=== PATIENT | female | born 1950 | race Caucasian/White ===

== ENCOUNTER 2022-02-18 10:07 | Inpatient (IN) | payer MEDICARE, OTHER ==
[2022-02-18] MEDS: ALBUTEROL SO4 2.5/IPRATROPIUM 0.5 INH SOL 3 ML VIAL.NEB. NEB SCH ×2 (11:00→11:01)
[2022-02-18] MEDS ORDERED: ALBUTEROL SO4 2.5/IPRATROPIUM 0.5 INH SOL 3 ML VIAL.NEB. NEB ONE (11:03)
[2022-02-18 11:47] LABS: HEMATOCRIT 36.8 % (32.4-45.2); HEMOGLOBIN 12.3 GM/dL (10.7-15.3); MCHC 33.5 g/dl (32.0-36.0); MEAN CELL VOLUME 92.7 fl (80-96); MEAN PLT VOLUME 9.6 fl (7.5-11.1); PLATELET COUNT 111 10^3/uL (134-434); RBC 3.97 M/mm3 (3.60-5.2); RDW 14.4 % (11.6-15.6); WHITE BLOOD COUNT 4.8 K/mm3 (4.0-10.0)
[2022-02-18 11:55] LABS: INR 1.37 (0.83-1.09); PROTHROMBIN TIME (PATIENT) 15.8 SEC (9.7-13.0)
[2022-02-18 11:58] LABS: ACTIVATED PTT 36.5 SECONDS (25.2-36.5)
[2022-02-18 12:14] LABS: CALCIUM 8.3 mg/dL (8.5-10.1)
[2022-02-18 12:15] LABS: ALBUMIN 2.9 g/dl (3.4-5.0); BLOOD UREA NITROGEN 10.5 mg/dL (7-18)
[2022-02-18 12:18] LABS: CREATININE 0.8 mg/dL (0.55-1.3)
[2022-02-18 12:19] LABS: BILIRUBIN,TOTAL 1.1 mg/dL (0.2-1)
[2022-02-18 12:20] LABS: TOT PROT 8.2 g/dl (6.4-8.2)
[2022-02-18 12:23] LABS: N-TERMINAL BNP 446.1 pg/ml (5-125)
[2022-02-18 12:50] LABS: ANISOCYTOSIS 0; MACROCYTOSIS 0
[2022-02-18] MEDS ORDERED: ASPIRIN 81 MG CHEWABLE TABLETS PO ONE (16:08)
[2022-02-18] MEDS: DEXAMETHASONE SOD PHOSPHATE 10 MG/1 ML VIAL IVPUSH SCH (16:33)
[2022-02-18] MEDS ORDERED: ASPIRIN 81 MG CHEWABLE TABLETS ONE (16:45)
[2022-02-18] MEDS ORDERED: DEXAMETHASONE SOD PHOSPHATE 10 MG/1 ML VIAL ONE (16:45)
[2022-02-18 16:46] LABS: PHOSPHOROUS 3.1 mg/dL (2.5-4.9)
[2022-02-18] MEDS ORDERED: ACETAMINOPHEN INJECTION 100 ML IVPB ONE (16:56)
[2022-02-18] MEDS ORDERED: ACETAMINOPHEN 1000 MG/100 ML BAG IVPB ONE (17:07)
[2022-02-18] MEDS ORDERED: ENOXAPARIN NA (PORCINE) 80 MG/0.8 ML DISP.SYRIN SQ ONE ×2 (17:45→18:44)
[2022-02-18 17:55] LABS: PH,URINE 6.5 (5.0-8.0); URINE APPEARANCE CLEAR; URINE BILIRUBIN NEGATIVE (NEGATIVE); URINE COLOR YELLOW; URINE GLUCOSE (UA) NEGATIVE (NEGATIVE); URINE KETONE NEGATIVE (NEGATIVE); URINE LEUK ESTERASE NEGATIVE (NEGATIVE); URINE NITRITE NEGATIVE (NEGATIVE); URINE PROTEIN NEGATIVE (NEGATIVE)
[2022-02-18] MEDS ORDERED: ATORVASTATIN CA 20 MG TABLET (FP) PO SCH (22:00)
[2022-02-18] MEDS ORDERED: ATORVASTATIN CA 80 MG TABLET (FP) PO SCH (22:00)
[2022-02-18] MEDS ORDERED: ATORVASTATIN CA 80 MG TABLET (FP) ONE (22:22)
[2022-02-18] MEDS ORDERED: MONTELUKAST NA 10 MG TABLET ONE (22:24)
[2022-02-18] MEDS: AMITRIPTYLINE HCL 75 MG TABLET PO SCH (22:47)
[2022-02-18] MEDS: MONTELUKAST NA 10 MG TABLET PO SCH (22:47)
[2022-02-19 00:58] VITALS: BMI 30.2
[2022-02-19] MEDS: LEVOTHYROXINE NA 150 MCG TABLET PO SCH (06:25)
[2022-02-19 08:51] LABS: HEMATOCRIT 36.2 % (32.4-45.2); HEMOGLOBIN 12.1 GM/dL (10.7-15.3); MCH 30.7 pg (25.7-33.7); MCHC 33.5 g/dl (32.0-36.0); MEAN CELL VOLUME 91.7 fl (80-96); MEAN PLT VOLUME 9.2 fl (7.5-11.1); PLATELET COUNT 115 10^3/uL (134-434); RBC 3.95 M/mm3 (3.60-5.2); RDW 15.1 % (11.6-15.6); WHITE BLOOD COUNT 11.3 K/mm3 (4.0-10.0)
[2022-02-19 09:10] LABS: CALCIUM 8.4 mg/dL (8.5-10.1)
[2022-02-19 09:11] LABS: ALBUMIN 2.8 g/dl (3.4-5.0); BLOOD UREA NITROGEN 11.3 mg/dL (7-18); MAGNESIUM 2.2 mg/dL (1.8-2.4)
[2022-02-19 09:13] LABS: CREATININE 0.7 mg/dL (0.55-1.3); PHOSPHOROUS 2.6 mg/dL (2.5-4.9)
[2022-02-19 09:16] LABS: BILIRUBIN,TOTAL 0.9 mg/dL (0.2-1); TOT PROT 7.9 g/dl (6.4-8.2)
[2022-02-19] MEDS: ACETAMINOPHEN 325 MG TABLET (FP) PO PRN (09:33)
[2022-02-19] MEDS: PANTOPRAZOLE 40 MG TABLET PO SCH (09:33)
[2022-02-19] MEDS: ASPIRIN COATED 81 MG TABLET.EC PO SCH (09:33)
[2022-02-19] MEDS: DEXAMETHASONE SOD PHOSPHATE 10 MG/1 ML VIAL IVPUSH SCH (09:33)
[2022-02-19 09:35] LABS: ERYTHROCYTE SEDIMENTATION RATE 83 mm/hr (0-30)
[2022-02-19] MEDS ORDERED: ENOXAPARIN NA (PORCINE) 40 MG/0.4 ML DISP.SYRIN SQ SCH (10:00)
[2022-02-19] MEDS ORDERED: POTASSIUM CHLORIDE ORAL LIQUID 20 MEQ/15 ML PO ONE (10:55)
[2022-02-19] MEDS: MONTELUKAST NA 10 MG TABLET PO SCH (21:21)
[2022-02-19] MEDS: AMITRIPTYLINE HCL 75 MG TABLET PO SCH (21:34)
[2022-02-20] MEDS: LEVOTHYROXINE NA 150 MCG TABLET PO SCH (06:18)
[2022-02-20 07:58] LABS: BASO % 0.2 % (0-2.0); HEMOGLOBIN 12.4 GM/dL (10.7-15.3); LYMPH % 11.3 % (8-40); MCH 30.5 pg (25.7-33.7); MCHC 32.8 g/dl (32.0-36.0); MEAN CELL VOLUME 93.1 fl (80-96); MEAN PLT VOLUME 9.5 fl (7.5-11.1); MONO % 5.4 % (3.8-10.2); NEUT % 83.1 % (42.8-82.8); PLATELET COUNT 130 10^3/uL (134-434); RBC 4.08 M/mm3 (3.60-5.2); WHITE BLOOD COUNT 12.3 K/mm3 (4.0-10.0)
[2022-02-20 08:19] LABS: CALCIUM 8.2 mg/dL (8.5-10.1)
[2022-02-20 08:21] LABS: ALBUMIN 2.7 g/dl (3.4-5.0); BLOOD UREA NITROGEN 16.2 mg/dL (7-18); MAGNESIUM 2.2 mg/dL (1.8-2.4)
[2022-02-20 08:24] LABS: CREATININE 0.6 mg/dL (0.55-1.3)
[2022-02-20 08:26] LABS: BILIRUBIN,TOTAL 0.9 mg/dL (0.2-1); TOT PROT 7.9 g/dl (6.4-8.2)
[2022-02-20] MEDS: ASPIRIN COATED 81 MG TABLET.EC PO SCH (11:03)
[2022-02-20] MEDS: ENOXAPARIN NA (PORCINE) 40 MG/0.4 ML DISP.SYRIN SQ SCH (11:03)
[2022-02-20] MEDS: DEXAMETHASONE SOD PHOSPHATE 10 MG/1 ML VIAL IVPUSH SCH (11:03)
[2022-02-20] MEDS: PANTOPRAZOLE 40 MG TABLET PO SCH (11:04)
[2022-02-20] MEDS: metoPROLOL SUCCINATE 25 MG TAB.SR.24H (FP) PO SCH (11:04)
[2022-02-20] MEDS ORDERED: AZITHROMYCIN IVPB 500 MG/250 ML BAG IVPB SCH (13:30)
[2022-02-20] MEDS: CEFTRIAXONE 1 GM in DEXTROSE 5%-WATER - 50 ML IVPB SCH (14:11)
[2022-02-20] MEDS: ALBUTEROL SO4 2.5/IPRATROPIUM 0.5 INH SOL 3 ML VIAL.NEB. NEB SCH ×2 (14:50→21:03)
[2022-02-20 17:07] LABS: PH,URINE 7.5 (5.0-8.0); URINE APPEARANCE CLEAR; URINE BILIRUBIN NEGATIVE (NEGATIVE); URINE COLOR YELLOW; URINE GLUCOSE (UA) NEGATIVE (NEGATIVE); URINE KETONE NEGATIVE (NEGATIVE); URINE LEUK ESTERASE NEGATIVE (NEGATIVE); URINE NITRITE NEGATIVE (NEGATIVE); URINE PROTEIN NEGATIVE (NEGATIVE)
[2022-02-20] MEDS: ACETAMINOPHEN 325 MG TABLET (FP) PO PRN (19:16)
[2022-02-20] MEDS: MONTELUKAST NA 10 MG TABLET PO SCH (21:02)
[2022-02-20] MEDS: AMITRIPTYLINE HCL 75 MG TABLET PO SCH (21:02)
[2022-02-21] MEDS: LEVOTHYROXINE NA 150 MCG TABLET PO SCH (06:33)
[2022-02-21] MEDS: ALBUTEROL SO4 2.5/IPRATROPIUM 0.5 INH SOL 3 ML VIAL.NEB. NEB SCH ×3 (07:35→19:35)
[2022-02-21 08:23] LABS: BASO % 0.2 % (0-2.0); HEMOGLOBIN 12.5 GM/dL (10.7-15.3); MCH 30.9 pg (25.7-33.7); MCHC 32.8 g/dl (32.0-36.0); MEAN PLT VOLUME 9.5 fl (7.5-11.1); MONO % 6.4 % (3.8-10.2); NEUT % 78.4 % (42.8-82.8); PLATELET COUNT 140 10^3/uL (134-434); RBC 4.04 M/mm3 (3.60-5.2); WHITE BLOOD COUNT 8.9 K/mm3 (4.0-10.0)
[2022-02-21 08:54] LABS: ALBUMIN 2.6 g/dl (3.4-5.0); BLOOD UREA NITROGEN 19.1 mg/dL (7-18); CALCIUM 8.3 mg/dL (8.5-10.1); CREATININE 0.7 mg/dL (0.55-1.3); MAGNESIUM 2.3 mg/dL (1.8-2.4); PHOSPHOROUS 3.6 mg/dL (2.5-4.9)
[2022-02-21 08:55] LABS: BILIRUBIN,TOTAL 0.8 mg/dL (0.2-1)
[2022-02-21 08:56] LABS: TOT PROT 7.9 g/dl (6.4-8.2)
[2022-02-21] MEDS: CEFTRIAXONE 1 GM in DEXTROSE 5%-WATER - 50 ML IVPB SCH (09:14)
[2022-02-21] MEDS: PANTOPRAZOLE 40 MG TABLET PO SCH (09:14)
[2022-02-21] MEDS: metoPROLOL SUCCINATE 25 MG TAB.SR.24H (FP) PO SCH (09:15)
[2022-02-21] MEDS: DEXAMETHASONE SOD PHOSPHATE 10 MG/1 ML VIAL IVPUSH SCH (09:15)
[2022-02-21] MEDS: ASPIRIN COATED 81 MG TABLET.EC PO SCH (09:15)
[2022-02-21] MEDS: ENOXAPARIN NA (PORCINE) 40 MG/0.4 ML DISP.SYRIN SQ SCH (09:15)
[2022-02-21] MEDS: guaiFENesin 200 MG/10 ML 10 ML UNIT-DOSE CUPS PO PRN (09:16)
[2022-02-21] MEDS: AMITRIPTYLINE HCL 75 MG TABLET PO SCH (21:06)
[2022-02-21] MEDS: MONTELUKAST NA 10 MG TABLET PO SCH (21:06)
[2022-02-22] MEDS: LEVOTHYROXINE NA 150 MCG TABLET PO SCH (06:31)
[2022-02-22] MEDS: ALBUTEROL SO4 2.5/IPRATROPIUM 0.5 INH SOL 3 ML VIAL.NEB. NEB SCH ×3 (07:52→20:08)
[2022-02-22] MEDS: DEXAMETHASONE SOD PHOSPHATE 10 MG/1 ML VIAL IVPUSH SCH (09:32)
[2022-02-22] MEDS: PANTOPRAZOLE 40 MG TABLET PO SCH (09:32)
[2022-02-22] MEDS: ENOXAPARIN NA (PORCINE) 40 MG/0.4 ML DISP.SYRIN SQ SCH (09:32)
[2022-02-22] MEDS: CEFTRIAXONE 1 GM in DEXTROSE 5%-WATER - 50 ML IVPB SCH (09:32)
[2022-02-22] MEDS: metoPROLOL SUCCINATE 25 MG TAB.SR.24H (FP) PO SCH (09:32)
[2022-02-22] MEDS: ASPIRIN COATED 81 MG TABLET.EC PO SCH (09:32)
[2022-02-22] MEDS: ALBUTEROL SO4 HFA INHALER IH PRN (09:33)
[2022-02-22] MEDS: guaiFENesin 200 MG/10 ML 10 ML UNIT-DOSE CUPS PO PRN ×2 (09:33→21:17)
[2022-02-22 10:29] LABS: BASO % 0.1 % (0-2.0); HEMATOCRIT 38.5 % (32.4-45.2); HEMOGLOBIN 12.6 GM/dL (10.7-15.3); LYMPH % 17.5 % (8-40); MCH 30.8 pg (25.7-33.7); MCHC 32.8 g/dl (32.0-36.0); MEAN CELL VOLUME 93.9 fl (80-96); MEAN PLT VOLUME 9.1 fl (7.5-11.1); MONO % 3.4 % (3.8-10.2); PLATELET COUNT 137 10^3/uL (134-434); RDW 14.8 % (11.6-15.6); WHITE BLOOD COUNT 7.8 K/mm3 (4.0-10.0)
[2022-02-22 10:55] LABS: ALBUMIN 2.5 g/dl (3.4-5.0); BLOOD UREA NITROGEN 16.8 mg/dL (7-18); CALCIUM 7.8 mg/dL (8.5-10.1); MAGNESIUM 1.7 mg/dL (1.8-2.4)
[2022-02-22 10:57] LABS: CREATININE 0.8 mg/dL (0.55-1.3)
[2022-02-22 10:58] LABS: PHOSPHOROUS 3.2 mg/dL (2.5-4.9)
[2022-02-22 11:00] LABS: BILIRUBIN,TOTAL 0.5 mg/dL (0.2-1); TOT PROT 7.4 g/dl (6.4-8.2)
[2022-02-22] MEDS ORDERED: MAGNESIUM 2GM/50ML STERILE WATER IVPB IVPB ONE (13:23)
[2022-02-22] MEDS: MONTELUKAST NA 10 MG TABLET PO SCH (21:17)
[2022-02-22] MEDS: AMITRIPTYLINE HCL 75 MG TABLET PO SCH (21:17)
[2022-02-22] MEDS: BUDESONIDE/FORMETEROL FUMARATE 80/4.5 mcg INHALER IH SCH (22:26)
[2022-02-23] MEDS: LEVOTHYROXINE NA 150 MCG TABLET PO SCH (06:19)
[2022-02-23] MEDS: ALBUTEROL SO4 2.5/IPRATROPIUM 0.5 INH SOL 3 ML VIAL.NEB. NEB SCH ×3 (07:34→20:51)
[2022-02-23 09:07] LABS: HEMATOCRIT 38.4 % (32.4-45.2); HEMOGLOBIN 12.7 GM/dL (10.7-15.3); MCH 30.7 pg (25.7-33.7); MCHC 33.2 g/dl (32.0-36.0); MEAN CELL VOLUME 92.7 fl (80-96); MEAN PLT VOLUME 8.8 fl (7.5-11.1); PLATELET COUNT 151 10^3/uL (134-434); RBC 4.14 M/mm3 (3.60-5.2); RDW 15.2 % (11.6-15.6); WHITE BLOOD COUNT 8.4 K/mm3 (4.0-10.0)
[2022-02-23] MEDS: CEFTRIAXONE 1 GM in DEXTROSE 5%-WATER - 50 ML IVPB SCH (09:11)
[2022-02-23] MEDS: ENOXAPARIN NA (PORCINE) 40 MG/0.4 ML DISP.SYRIN SQ SCH (09:11)
[2022-02-23] MEDS: PANTOPRAZOLE 40 MG TABLET PO SCH (09:12)
[2022-02-23] MEDS: DEXAMETHASONE SOD PHOSPHATE 10 MG/1 ML VIAL IVPUSH SCH (09:12)
[2022-02-23] MEDS: ASPIRIN COATED 81 MG TABLET.EC PO SCH (09:12)
[2022-02-23] MEDS: metoPROLOL SUCCINATE 25 MG TAB.SR.24H (FP) PO SCH (09:13)
[2022-02-23] MEDS: BUDESONIDE/FORMETEROL FUMARATE 80/4.5 mcg INHALER IH SCH ×2 (09:13→21:00)
[2022-02-23 09:28] LABS: CALCIUM 7.8 mg/dL (8.5-10.1)
[2022-02-23 09:29] LABS: ALBUMIN 2.5 g/dl (3.4-5.0); BLOOD UREA NITROGEN 15.2 mg/dL (7-18); MAGNESIUM 2.3 mg/dL (1.8-2.4)
[2022-02-23 09:32] LABS: CREATININE 0.6 mg/dL (0.55-1.3)
[2022-02-23 09:33] LABS: BILIRUBIN,TOTAL 0.6 mg/dL (0.2-1); TOT PROT 7.6 g/dl (6.4-8.2)
[2022-02-23] MEDS: MONTELUKAST NA 10 MG TABLET PO SCH (21:00)
[2022-02-23] MEDS: guaiFENesin 200 MG/10 ML 10 ML UNIT-DOSE CUPS PO PRN (21:00)
[2022-02-23] MEDS: AMITRIPTYLINE HCL 75 MG TABLET PO SCH (21:00)
[2022-02-24] MEDS: LEVOTHYROXINE NA 150 MCG TABLET PO SCH (05:59)
[2022-02-24] MEDS: ACETAMINOPHEN 325 MG TABLET (FP) PO PRN (06:02)
[2022-02-24] MEDS: ALBUTEROL SO4 2.5/IPRATROPIUM 0.5 INH SOL 3 ML VIAL.NEB. NEB SCH ×3 (08:40→20:19)
[2022-02-24] MEDS: ENOXAPARIN NA (PORCINE) 40 MG/0.4 ML DISP.SYRIN SQ SCH (10:01)
[2022-02-24] MEDS: BUDESONIDE/FORMETEROL FUMARATE 80/4.5 mcg INHALER IH SCH ×2 (10:01→22:08)
[2022-02-24] MEDS: ASPIRIN COATED 81 MG TABLET.EC PO SCH (10:01)
[2022-02-24] MEDS: PANTOPRAZOLE 40 MG TABLET PO SCH (10:01)
[2022-02-24] MEDS: metoPROLOL SUCCINATE 25 MG TAB.SR.24H (FP) PO SCH (10:01)
[2022-02-24] MEDS: CEFTRIAXONE 1 GM in DEXTROSE 5%-WATER - 50 ML IVPB SCH (10:01)
[2022-02-24] MEDS: DEXAMETHASONE SOD PHOSPHATE 10 MG/1 ML VIAL IVPUSH SCH (10:01)
[2022-02-24] MEDS: guaiFENesin 200 MG/10 ML 10 ML UNIT-DOSE CUPS PO PRN (14:10)
[2022-02-24] MEDS: BARICITINIB 2 MG TABLET PO SCH (16:02)
[2022-02-24] MEDS: MONTELUKAST NA 10 MG TABLET PO SCH (22:08)
[2022-02-24] MEDS: AMITRIPTYLINE HCL 75 MG TABLET PO SCH (22:08)
[2022-02-25] MEDS: ACETAMINOPHEN 325 MG TABLET (FP) PO PRN (01:14)
[2022-02-25] MEDS: guaiFENesin 200 MG/10 ML 10 ML UNIT-DOSE CUPS PO PRN ×2 (06:37→17:25)
[2022-02-25] MEDS: ALBUTEROL SO4 HFA INHALER IH PRN (06:39)
[2022-02-25] MEDS: LEVOTHYROXINE NA 150 MCG TABLET PO SCH (07:03)
[2022-02-25] MEDS: ALBUTEROL SO4 2.5/IPRATROPIUM 0.5 INH SOL 3 ML VIAL.NEB. NEB SCH ×3 (08:19→19:28)
[2022-02-25 08:34] LABS: BASO % 0.1 % (0-2.0); EOS % 0.1 % (0-4.5); HEMATOCRIT 38.4 % (32.4-45.2); HEMOGLOBIN 12.7 GM/dL (10.7-15.3); LYMPH % 16.3 % (8-40); MCH 30.8 pg (25.7-33.7); MCHC 33.1 g/dl (32.0-36.0); MEAN CELL VOLUME 93.1 fl (80-96); MEAN PLT VOLUME 8.3 fl (7.5-11.1); NEUT % 77.5 % (42.8-82.8); PLATELET COUNT 167 10^3/uL (134-434); RBC 4.12 M/mm3 (3.60-5.2); WHITE BLOOD COUNT 9.5 K/mm3 (4.0-10.0)
[2022-02-25 08:57] LABS: BLOOD UREA NITROGEN 18.7 mg/dL (7-18); CALCIUM 8.1 mg/dL (8.5-10.1)
[2022-02-25 08:58] LABS: ALBUMIN 2.3 g/dl (3.4-5.0)
[2022-02-25 08:59] LABS: MAGNESIUM 1.9 mg/dL (1.8-2.4); PHOSPHOROUS 4.3 mg/dL (2.5-4.9)
[2022-02-25 09:00] LABS: CREATININE 0.6 mg/dL (0.55-1.3)
[2022-02-25 09:01] LABS: BILIRUBIN,TOTAL 0.6 mg/dL (0.2-1); TOT PROT 7.1 g/dl (6.4-8.2)
[2022-02-25] MEDS: DEXAMETHASONE SOD PHOSPHATE 10 MG/1 ML VIAL IVPUSH SCH (09:08)
[2022-02-25] MEDS: BARICITINIB 2 MG TABLET PO SCH (09:10)
[2022-02-25] MEDS: ENOXAPARIN NA (PORCINE) 40 MG/0.4 ML DISP.SYRIN SQ SCH (09:10)
[2022-02-25] MEDS: PANTOPRAZOLE 40 MG TABLET PO SCH (09:10)
[2022-02-25] MEDS: metoPROLOL SUCCINATE 25 MG TAB.SR.24H (FP) PO SCH (09:10)
[2022-02-25] MEDS: ASPIRIN COATED 81 MG TABLET.EC PO SCH (09:10)
[2022-02-25] MEDS: CEFTRIAXONE 1 GM in DEXTROSE 5%-WATER - 50 ML IVPB SCH (09:11)
[2022-02-25] MEDS: BUDESONIDE/FORMETEROL FUMARATE 80/4.5 mcg INHALER IH SCH ×2 (09:11→21:26)
[2022-02-25] MEDS: AMITRIPTYLINE HCL 75 MG TABLET PO SCH (21:26)
[2022-02-25] MEDS: MONTELUKAST NA 10 MG TABLET PO SCH (21:26)
[2022-02-26] MEDS: guaiFENesin 200 MG/10 ML 10 ML UNIT-DOSE CUPS PO PRN ×3 (04:45→21:09)
[2022-02-26] MEDS: ACETAMINOPHEN 325 MG TABLET (FP) PO PRN ×2 (04:45→13:13)
[2022-02-26] MEDS: LEVOTHYROXINE NA 150 MCG TABLET PO SCH (06:26)
[2022-02-26 07:18] LABS: BASO % 0.1 % (0-2.0); EOS % 0.1 % (0-4.5); HEMATOCRIT 37.2 % (32.4-45.2); HEMOGLOBIN 12.3 GM/dL (10.7-15.3); MCH 30.8 pg (25.7-33.7); MCHC 33.1 g/dl (32.0-36.0); MEAN CELL VOLUME 92.9 fl (80-96); MEAN PLT VOLUME 8.3 fl (7.5-11.1); MONO % 7.2 % (3.8-10.2); NEUT % 72.6 % (42.8-82.8); PLATELET COUNT 177 10^3/uL (134-434); WHITE BLOOD COUNT 9.1 K/mm3 (4.0-10.0)
[2022-02-26] MEDS: ALBUTEROL SO4 2.5/IPRATROPIUM 0.5 INH SOL 3 ML VIAL.NEB. NEB SCH ×3 (07:18→20:30)
[2022-02-26 07:34] LABS: CALCIUM 7.9 mg/dL (8.5-10.1)
[2022-02-26 07:35] LABS: ALBUMIN 2.2 g/dl (3.4-5.0); BLOOD UREA NITROGEN 21.1 mg/dL (7-18); MAGNESIUM 2.1 mg/dL (1.8-2.4)
[2022-02-26 07:38] LABS: CREATININE 0.5 mg/dL (0.55-1.3); PHOSPHOROUS 3.8 mg/dL (2.5-4.9)
[2022-02-26 07:39] LABS: BILIRUBIN,TOTAL 0.4 mg/dL (0.2-1)
[2022-02-26 07:40] LABS: TOT PROT 6.8 g/dl (6.4-8.2)
[2022-02-26] MEDS: ASPIRIN COATED 81 MG TABLET.EC PO SCH (09:06)
[2022-02-26] MEDS: BARICITINIB 2 MG TABLET PO SCH (09:06)
[2022-02-26] MEDS: metoPROLOL SUCCINATE 25 MG TAB.SR.24H (FP) PO SCH (09:06)
[2022-02-26] MEDS: PANTOPRAZOLE 40 MG TABLET PO SCH (09:06)
[2022-02-26] MEDS: ENOXAPARIN NA (PORCINE) 40 MG/0.4 ML DISP.SYRIN SQ SCH (09:07)
[2022-02-26] MEDS: CEFTRIAXONE 1 GM in DEXTROSE 5%-WATER - 50 ML IVPB SCH (09:07)
[2022-02-26] MEDS: BUDESONIDE/FORMETEROL FUMARATE 80/4.5 mcg INHALER IH SCH ×2 (09:07→21:06)
[2022-02-26] MEDS: DEXAMETHASONE SOD PHOSPHATE 10 MG/1 ML VIAL IVPUSH SCH (09:07)
[2022-02-26] MEDS: AMITRIPTYLINE HCL 75 MG TABLET PO SCH (21:04)
[2022-02-26] MEDS: MONTELUKAST NA 10 MG TABLET PO SCH (21:04)
[2022-02-27] MEDS: LEVOTHYROXINE NA 150 MCG TABLET PO SCH (06:07)
[2022-02-27] MEDS: ALBUTEROL SO4 2.5/IPRATROPIUM 0.5 INH SOL 3 ML VIAL.NEB. NEB SCH ×3 (07:25→20:25)
[2022-02-27 08:14] LABS: BASO % 0.2 % (0-2.0); EOS % 0.3 % (0-4.5); HEMATOCRIT 36.4 % (32.4-45.2); HEMOGLOBIN 12.1 GM/dL (10.7-15.3); LYMPH % 20.3 % (8-40); MCHC 33.2 g/dl (32.0-36.0); MEAN CELL VOLUME 93.2 fl (80-96); MEAN PLT VOLUME 8.5 fl (7.5-11.1); MONO % 7.4 % (3.8-10.2); NEUT % 71.8 % (42.8-82.8); PLATELET COUNT 182 10^3/uL (134-434); RBC 3.91 M/mm3 (3.60-5.2); RDW 15.1 % (11.6-15.6); WHITE BLOOD COUNT 9.5 K/mm3 (4.0-10.0)
[2022-02-27 08:30] LABS: BLOOD UREA NITROGEN 24.1 mg/dL (7-18)
[2022-02-27 08:31] LABS: ALBUMIN 2.2 g/dl (3.4-5.0)
[2022-02-27 08:32] LABS: MAGNESIUM 1.9 mg/dL (1.8-2.4)
[2022-02-27 08:34] LABS: PHOSPHOROUS 4.1 mg/dL (2.5-4.9)
[2022-02-27 08:35] LABS: CREATININE 0.5 mg/dL (0.55-1.3)
[2022-02-27 08:36] LABS: BILIRUBIN,TOTAL 0.4 mg/dL (0.2-1); TOT PROT 6.6 g/dl (6.4-8.2)
[2022-02-27] MEDS: CEFTRIAXONE 1 GM in DEXTROSE 5%-WATER - 50 ML IVPB SCH (09:43)
[2022-02-27] MEDS: guaiFENesin 200 MG/10 ML 10 ML UNIT-DOSE CUPS PO PRN (09:50)
[2022-02-27] MEDS: DEXAMETHASONE SOD PHOSPHATE 10 MG/1 ML VIAL IVPUSH SCH (09:50)
[2022-02-27] MEDS: ENOXAPARIN NA (PORCINE) 40 MG/0.4 ML DISP.SYRIN SQ SCH (09:50)
[2022-02-27] MEDS: metoPROLOL SUCCINATE 25 MG TAB.SR.24H (FP) PO SCH (09:52)
[2022-02-27] MEDS: BUDESONIDE/FORMETEROL FUMARATE 80/4.5 mcg INHALER IH SCH ×2 (09:52→21:13)
[2022-02-27] MEDS: PANTOPRAZOLE 40 MG TABLET PO SCH (09:52)
[2022-02-27] MEDS: ASPIRIN COATED 81 MG TABLET.EC PO SCH (09:52)
[2022-02-27] MEDS: BARICITINIB 2 MG TABLET PO SCH (09:55)
[2022-02-27] MEDS: AMITRIPTYLINE HCL 75 MG TABLET PO SCH (21:08)
[2022-02-27] MEDS: MONTELUKAST NA 10 MG TABLET PO SCH (21:08)
[2022-02-28] MEDS: ALBUTEROL SO4 2.5/IPRATROPIUM 0.5 INH SOL 3 ML VIAL.NEB. NEB SCH ×3 (07:48→20:35)
[2022-02-28] MEDS: LEVOTHYROXINE NA 150 MCG TABLET PO SCH (08:07)
[2022-02-28 08:25] LABS: HEMATOCRIT 37.2 % (32.4-45.2); HEMOGLOBIN 12.2 GM/dL (10.7-15.3); MCH 30.7 pg (25.7-33.7); MEAN CELL VOLUME 93.2 fl (80-96); MEAN PLT VOLUME 8.2 fl (7.5-11.1); PLATELET COUNT 182 10^3/uL (134-434); RBC 3.99 M/mm3 (3.60-5.2); RDW 15.2 % (11.6-15.6); WHITE BLOOD COUNT 9.5 K/mm3 (4.0-10.0)
[2022-02-28 08:51] LABS: ALBUMIN 2.2 g/dl (3.4-5.0); BLOOD UREA NITROGEN 26.3 mg/dL (7-18); MAGNESIUM 2.1 mg/dL (1.8-2.4)
[2022-02-28 08:54] LABS: CREATININE 0.6 mg/dL (0.55-1.3); PHOSPHOROUS 4.2 mg/dL (2.5-4.9)
[2022-02-28 08:55] LABS: BILIRUBIN,TOTAL 0.6 mg/dL (0.2-1); TOT PROT 6.7 g/dl (6.4-8.2)
[2022-02-28] MEDS: PANTOPRAZOLE 40 MG TABLET PO SCH (09:48)
[2022-02-28] MEDS: ASPIRIN COATED 81 MG TABLET.EC PO SCH (09:48)
[2022-02-28] MEDS: CEFTRIAXONE 1 GM in DEXTROSE 5%-WATER - 50 ML IVPB SCH (09:49)
[2022-02-28] MEDS: BARICITINIB 2 MG TABLET PO SCH (09:49)
[2022-02-28] MEDS: ENOXAPARIN NA (PORCINE) 40 MG/0.4 ML DISP.SYRIN SQ SCH (09:49)
[2022-02-28] MEDS: metoPROLOL SUCCINATE 25 MG TAB.SR.24H (FP) PO SCH (09:49)
[2022-02-28] MEDS: DEXAMETHASONE SOD PHOSPHATE 10 MG/1 ML VIAL IVPUSH SCH (09:50)
[2022-02-28] MEDS: BUDESONIDE/FORMETEROL FUMARATE 80/4.5 mcg INHALER IH SCH ×2 (09:51→21:36)
[2022-02-28] MEDS: MONTELUKAST NA 10 MG TABLET PO SCH (21:35)
[2022-02-28] MEDS: AMITRIPTYLINE HCL 75 MG TABLET PO SCH (21:35)
[2022-02-28] MEDS: guaiFENesin 200 MG/10 ML 10 ML UNIT-DOSE CUPS PO PRN (21:40)
[2022-03-01] MEDS: LEVOTHYROXINE NA 150 MCG TABLET PO SCH (06:50)
[2022-03-01] MEDS: ALBUTEROL SO4 2.5/IPRATROPIUM 0.5 INH SOL 3 ML VIAL.NEB. NEB SCH ×3 (07:20→20:52)
[2022-03-01] MEDS: BARICITINIB 2 MG TABLET PO SCH (10:20)
[2022-03-01] MEDS: ENOXAPARIN NA (PORCINE) 40 MG/0.4 ML DISP.SYRIN SQ SCH (10:20)
[2022-03-01] MEDS: DEXAMETHASONE SOD PHOSPHATE 10 MG/1 ML VIAL IVPUSH SCH (10:20)
[2022-03-01] MEDS: ASPIRIN COATED 81 MG TABLET.EC PO SCH (10:20)
[2022-03-01] MEDS: PANTOPRAZOLE 40 MG TABLET PO SCH (10:20)
[2022-03-01] MEDS: BUDESONIDE/FORMETEROL FUMARATE 80/4.5 mcg INHALER IH SCH ×2 (10:20→21:17)
[2022-03-01 10:31] LABS: HEMATOCRIT 37.4 % (32.4-45.2); HEMOGLOBIN 12.2 GM/dL (10.7-15.3); MCH 30.9 pg (25.7-33.7); MCHC 32.7 g/dl (32.0-36.0); MEAN CELL VOLUME 94.3 fl (80-96); MEAN PLT VOLUME 8.3 fl (7.5-11.1); PLATELET COUNT 213 10^3/uL (134-434); RBC 3.97 M/mm3 (3.60-5.2); RDW 15.4 % (11.6-15.6); WHITE BLOOD COUNT 10.8 K/mm3 (4.0-10.0)
[2022-03-01 10:55] LABS: CHLORIDE 110 mmol/L (98-107); SODIUM 143 mmol/L (136-145)
[2022-03-01 11:02] LABS: ALBUMIN 2.3 g/dl (3.4-5.0); ANION GAP 7 MMOL/L (8-16); BLOOD UREA NITROGEN 27.6 mg/dL (7-18); CALCIUM 8.3 mg/dL (8.5-10.1); CO2 26 mmol/L (21-32); GLUCOSE,RANDOM 116 mg/dL (74-106); MAGNESIUM 2.2 mg/dL (1.8-2.4); SGPT/ALT 99 U/L (13-61)
[2022-03-01 11:04] LABS: CREATININE 0.6 mg/dL (0.55-1.3); PHOSPHOROUS 3.1 mg/dL (2.5-4.9); SGOT/AST 69 U/L (15-37)
[2022-03-01 11:07] LABS: ALK PHOS 195 U/L (45-117); BILIRUBIN,TOTAL 0.5 mg/dL (0.2-1); TOT PROT 6.8 g/dl (6.4-8.2)
[2022-03-01] MEDS: metoPROLOL SUCCINATE 25 MG TAB.SR.24H (FP) PO SCH (15:18)
[2022-03-01] MEDS: MONTELUKAST NA 10 MG TABLET PO SCH (21:16)
[2022-03-01] MEDS: AMITRIPTYLINE HCL 75 MG TABLET PO SCH (21:17)
[2022-03-02] MEDS: LEVOTHYROXINE NA 150 MCG TABLET PO SCH (06:06)
[2022-03-02] MEDS: ALBUTEROL SO4 2.5/IPRATROPIUM 0.5 INH SOL 3 ML VIAL.NEB. NEB SCH ×3 (08:16→20:40)
[2022-03-02] MEDS: DEXAMETHASONE SOD PHOSPHATE 10 MG/1 ML VIAL IVPUSH SCH (09:59)
[2022-03-02] MEDS: metoPROLOL SUCCINATE 25 MG TAB.SR.24H (FP) PO SCH (09:59)
[2022-03-02] MEDS: ASPIRIN COATED 81 MG TABLET.EC PO SCH (09:59)
[2022-03-02] MEDS: ENOXAPARIN NA (PORCINE) 40 MG/0.4 ML DISP.SYRIN SQ SCH (09:59)
[2022-03-02] MEDS: BARICITINIB 2 MG TABLET PO SCH (10:00)
[2022-03-02] MEDS: PANTOPRAZOLE 40 MG TABLET PO SCH (10:00)
[2022-03-02] MEDS: BUDESONIDE/FORMETEROL FUMARATE 80/4.5 mcg INHALER IH SCH ×2 (10:01→21:28)
[2022-03-02] MEDS: PETROLATUM, WHITE 30 GM TUBE TP SCH (16:46)
[2022-03-02] MEDS: AMITRIPTYLINE HCL 75 MG TABLET PO SCH (21:28)
[2022-03-02] MEDS: MONTELUKAST NA 10 MG TABLET PO SCH (21:28)
[2022-03-03] MEDS: LEVOTHYROXINE NA 150 MCG TABLET PO SCH (06:24)
[2022-03-03] MEDS: ALBUTEROL SO4 2.5/IPRATROPIUM 0.5 INH SOL 3 ML VIAL.NEB. NEB SCH ×3 (08:31→19:44)
[2022-03-03 08:43] LABS: BASO % 0.2 % (0-2.0); EOS % 0.2 % (0-4.5); HEMATOCRIT 34.8 % (32.4-45.2); HEMOGLOBIN 11.9 GM/dL (10.7-15.3); LYMPH % 21.4 % (8-40); MCH 32.1 pg (25.7-33.7); MCHC 34.1 g/dl (32.0-36.0); MEAN PLT VOLUME 8.4 fl (7.5-11.1); MONO % 7.5 % (3.8-10.2); NEUT % 70.7 % (42.8-82.8); PLATELET COUNT 176 10^3/uL (134-434); RDW 15.1 % (11.6-15.6); WHITE BLOOD COUNT 9.4 K/mm3 (4.0-10.0)
[2022-03-03 08:52] LABS: CALCIUM 7.6 mg/dL (8.5-10.1)
[2022-03-03 08:53] LABS: ALBUMIN 2.1 g/dl (3.4-5.0); BLOOD UREA NITROGEN 27.4 mg/dL (7-18); MAGNESIUM 2.1 mg/dL (1.8-2.4)
[2022-03-03 08:56] LABS: CREATININE 0.6 mg/dL (0.55-1.3); PHOSPHOROUS 3.1 mg/dL (2.5-4.9)
[2022-03-03 08:57] LABS: BILIRUBIN,TOTAL 0.5 mg/dL (0.2-1); TOT PROT 6.2 g/dl (6.4-8.2)
[2022-03-03] MEDS: ASPIRIN COATED 81 MG TABLET.EC PO SCH (10:14)
[2022-03-03] MEDS: PANTOPRAZOLE 40 MG TABLET PO SCH (10:14)
[2022-03-03] MEDS: metoPROLOL SUCCINATE 25 MG TAB.SR.24H (FP) PO SCH (10:14)
[2022-03-03] MEDS: DEXAMETHASONE SOD PHOSPHATE 10 MG/1 ML VIAL IVPUSH SCH (10:15)
[2022-03-03] MEDS: BARICITINIB 2 MG TABLET PO SCH (10:15)
[2022-03-03] MEDS: ENOXAPARIN NA (PORCINE) 40 MG/0.4 ML DISP.SYRIN SQ SCH (10:15)
[2022-03-03] MEDS: PETROLATUM, WHITE 30 GM TUBE TP SCH (10:16)
[2022-03-03] MEDS: BUDESONIDE/FORMETEROL FUMARATE 80/4.5 mcg INHALER IH SCH ×2 (10:16→21:58)
[2022-03-03] MEDS: AMITRIPTYLINE HCL 75 MG TABLET PO SCH (21:57)
[2022-03-03] MEDS: MONTELUKAST NA 10 MG TABLET PO SCH (21:57)
[2022-03-04] MEDS: LEVOTHYROXINE NA 150 MCG TABLET PO SCH (06:31)
[2022-03-04 08:00] LABS: ALBUMIN 2.3 g/dl (3.4-5.0); MAGNESIUM 2.2 mg/dL (1.8-2.4)
[2022-03-04 08:01] LABS: BLOOD UREA NITROGEN 25.9 mg/dL (7-18)
[2022-03-04 08:03] LABS: PHOSPHOROUS 3.9 mg/dL (2.5-4.9)
[2022-03-04 08:04] LABS: CREATININE 0.6 mg/dL (0.55-1.3)
[2022-03-04 08:05] LABS: BILIRUBIN,TOTAL 0.5 mg/dL (0.2-1); TOT PROT 6.3 g/dl (6.4-8.2)
[2022-03-04 08:16] LABS: HEMATOCRIT 36.4 % (32.4-45.2); HEMOGLOBIN 11.9 GM/dL (10.7-15.3); MCH 30.8 pg (25.7-33.7); MCHC 32.7 g/dl (32.0-36.0); MEAN CELL VOLUME 94.4 fl (80-96); MEAN PLT VOLUME 9.1 fl (7.5-11.1); PLATELET COUNT 181 10^3/uL (134-434); RBC 3.85 M/mm3 (3.60-5.2); RDW 15.4 % (11.6-15.6); WHITE BLOOD COUNT 10.1 K/mm3 (4.0-10.0)
[2022-03-04] MEDS: ALBUTEROL SO4 2.5/IPRATROPIUM 0.5 INH SOL 3 ML VIAL.NEB. NEB SCH ×3 (08:25→19:49)
[2022-03-04] MEDS: metoPROLOL SUCCINATE 25 MG TAB.SR.24H (FP) PO SCH (09:00)
[2022-03-04] MEDS: ASPIRIN COATED 81 MG TABLET.EC PO SCH (09:00)
[2022-03-04] MEDS: ENOXAPARIN NA (PORCINE) 40 MG/0.4 ML DISP.SYRIN SQ SCH (09:00)
[2022-03-04] MEDS: BARICITINIB 2 MG TABLET PO SCH (09:00)
[2022-03-04] MEDS: PANTOPRAZOLE 40 MG TABLET PO SCH (09:00)
[2022-03-04] MEDS: DEXAMETHASONE SOD PHOSPHATE 10 MG/1 ML VIAL IVPUSH SCH (09:00)
[2022-03-04] MEDS: BUDESONIDE/FORMETEROL FUMARATE 80/4.5 mcg INHALER IH SCH ×2 (09:01→22:42)
[2022-03-04] MEDS: PETROLATUM, WHITE 30 GM TUBE TP SCH (09:02)
[2022-03-04] MEDS: AMITRIPTYLINE HCL 75 MG TABLET PO SCH (22:42)
[2022-03-04] MEDS: valACYclovir HCL 500 MG TABLET (FP) PO SCH (22:42)
[2022-03-04] MEDS: MONTELUKAST NA 10 MG TABLET PO SCH (22:42)
[2022-03-05] MEDS: LEVOTHYROXINE NA 150 MCG TABLET PO SCH (06:41)
[2022-03-05] MEDS: ALBUTEROL SO4 2.5/IPRATROPIUM 0.5 INH SOL 3 ML VIAL.NEB. NEB SCH ×3 (07:47→20:25)
[2022-03-05 08:40] LABS: HEMATOCRIT 34.4 % (32.4-45.2); HEMOGLOBIN 11.8 GM/dL (10.7-15.3); MCH 32.1 pg (25.7-33.7); MCHC 34.3 g/dl (32.0-36.0); MEAN CELL VOLUME 93.7 fl (80-96); MEAN PLT VOLUME 8.2 fl (7.5-11.1); PLATELET COUNT 180 10^3/uL (134-434); RBC 3.68 M/mm3 (3.60-5.2); RDW 15.3 % (11.6-15.6); WHITE BLOOD COUNT 9.5 K/mm3 (4.0-10.0)
[2022-03-05 08:58] LABS: ALBUMIN 2.2 g/dl (3.4-5.0); BLOOD UREA NITROGEN 27.3 mg/dL (7-18); MAGNESIUM 2.3 mg/dL (1.8-2.4)
[2022-03-05 09:00] LABS: PHOSPHOROUS 3.8 mg/dL (2.5-4.9)
[2022-03-05 09:01] LABS: BILIRUBIN,TOTAL 0.5 mg/dL (0.2-1); CREATININE 0.5 mg/dL (0.55-1.3)
[2022-03-05 09:02] LABS: TOT PROT 6.2 g/dl (6.4-8.2)
[2022-03-05] MEDS: ENOXAPARIN NA (PORCINE) 40 MG/0.4 ML DISP.SYRIN SQ SCH (10:13)
[2022-03-05] MEDS: DEXAMETHASONE SOD PHOSPHATE 10 MG/1 ML VIAL IVPUSH SCH (10:14)
[2022-03-05] MEDS: BARICITINIB 2 MG TABLET PO SCH (10:18)
[2022-03-05] MEDS: BUDESONIDE/FORMETEROL FUMARATE 80/4.5 mcg INHALER IH SCH ×2 (10:19→21:18)
[2022-03-05] MEDS: PETROLATUM, WHITE 30 GM TUBE TP SCH (10:19)
[2022-03-05] MEDS: ASPIRIN COATED 81 MG TABLET.EC PO SCH (10:19)
[2022-03-05] MEDS: metoPROLOL SUCCINATE 25 MG TAB.SR.24H (FP) PO SCH (11:17)
[2022-03-05] MEDS: PANTOPRAZOLE 40 MG TABLET PO SCH (11:17)
[2022-03-05] MEDS: valACYclovir HCL 500 MG TABLET (FP) PO SCH ×2 (11:18→21:12)
[2022-03-05] MEDS: AMITRIPTYLINE HCL 75 MG TABLET PO SCH (21:12)
[2022-03-05] MEDS: MONTELUKAST NA 10 MG TABLET PO SCH (21:12)
[2022-03-06] MEDS: LEVOTHYROXINE NA 150 MCG TABLET PO SCH (06:29)
[2022-03-06] MEDS: ALBUTEROL SO4 2.5/IPRATROPIUM 0.5 INH SOL 3 ML VIAL.NEB. NEB SCH ×2 (08:02→16:10)
[2022-03-06 09:20] LABS: HEMATOCRIT 35.7 % (32.4-45.2); HEMOGLOBIN 11.8 GM/dL (10.7-15.3); MEAN CELL VOLUME 93.9 fl (80-96); MEAN PLT VOLUME 8.6 fl (7.5-11.1); PLATELET COUNT 202 10^3/uL (134-434); RDW 15.4 % (11.6-15.6)
[2022-03-06 09:44] LABS: CALCIUM 8.1 mg/dL (8.5-10.1)
[2022-03-06 09:45] LABS: ALBUMIN 2.3 g/dl (3.4-5.0); BLOOD UREA NITROGEN 28.2 mg/dL (7-18)
[2022-03-06 09:48] LABS: CREATININE 0.7 mg/dL (0.55-1.3)
[2022-03-06 09:52] LABS: BILIRUBIN,TOTAL 0.5 mg/dL (0.2-1); TOT PROT 6.3 g/dl (6.4-8.2)
[2022-03-06] MEDS: ENOXAPARIN NA (PORCINE) 40 MG/0.4 ML DISP.SYRIN SQ SCH (10:49)
[2022-03-06] MEDS: PANTOPRAZOLE 40 MG TABLET PO SCH (10:49)
[2022-03-06] MEDS: metoPROLOL SUCCINATE 25 MG TAB.SR.24H (FP) PO SCH (10:49)
[2022-03-06] MEDS: DEXAMETHASONE SOD PHOSPHATE 10 MG/1 ML VIAL IVPUSH SCH (10:50)
[2022-03-06] MEDS: valACYclovir HCL 500 MG TABLET (FP) PO SCH (10:50)
[2022-03-06] MEDS: ASPIRIN COATED 81 MG TABLET.EC PO SCH (10:50)
[2022-03-06] MEDS: BARICITINIB 2 MG TABLET PO SCH (10:51)
[2022-03-06] MEDS: PETROLATUM, WHITE 30 GM TUBE TP SCH (10:53)
[2022-03-06] MEDS: BUDESONIDE/FORMETEROL FUMARATE 80/4.5 mcg INHALER IH SCH (10:53)
[2022-03-06 15:05] VITALS: BP 132/80; PULSE 77; RESP 18; TEMP 98.6
== END 2022-03-06 18:09 | DRG 177 ==
LOC: JER 10:07 → JERBED 16:01 → J4S 23:13
PROVIDERS: ADMIT Internal Medicine; ATTEND Internal Medicine
DX: U07.1 COVID-19 (principal); J12.82 Pneumonia due to coronavirus disease 2019; J96.01 Acute respiratory failure with hypoxia; J15.9 Unspecified bacterial pneumonia; N39.0 Urinary tract infection, site not specified; F32.9 Major depressive disorder, single episode, unspecified; I10 Essential (primary) hypertension; J45.909 Unspecified asthma, uncomplicated; K74.3 Primary biliary cirrhosis; D69.6 Thrombocytopenia, unspecified; E03.9 Hypothyroidism, unspecified; J43.9 Emphysema, unspecified; K21.9 Gastro-esophageal reflux disease without esophagitis; E78.5 Hyperlipidemia, unspecified; D70.9 Neutropenia, unspecified; R74.01 Elevation of levels of liver transaminase levels; R07.89 Other chest pain
CPT/HCPCS: 0241U-QW; 36415; 71045-TC-FY; 71275-TC; 76705-TC; 80053; 80061; 81003; 82550; 83036; 83735; 83880; 84100; 84439; 84443; 84484; 85025; 85027; 85379; 85610; 85651; 85730; 86140; 86480; 86738; 87040; 87086; 87186; 87340; 87517; 87522; 87899; 93005; 93010; 93306-TC; 94640; 94761; 97116-GP; 97161-GP; 99285-25; C9803-CS; J1100; Q9967; U0003; U0005

== ENCOUNTER 2022-07-07 12:20 | Observation (INO) | payer MEDICARE, OTHER ==
[2022-07-07 12:37] VITALS: BMI 29.2
[2022-07-07 14:01] LABS: BASO % 0.8 % (0-2.0); EOS % 2.2 % (0-4.5); HEMATOCRIT 39.5 % (32.4-45.2); HEMOGLOBIN 13.2 GM/dL (10.7-15.3); LYMPH % 31.7 % (8-40); MCH 29.2 pg (25.7-33.7); MCHC 33.4 g/dl (32.0-36.0); MEAN CELL VOLUME 87.4 fl (80-96); MEAN PLT VOLUME 8.9 fl (7.5-11.1); MONO % 8.4 % (3.8-10.2); NEUT % 56.9 % (42.8-82.8); PLATELET COUNT 164 10^3/uL (134-434); RBC 4.52 M/mm3 (3.60-5.2); RDW 15.5 % (11.6-15.6); WHITE BLOOD COUNT 6.4 K/mm3 (4.0-10.0)
[2022-07-07 14:12] LABS: INR 1.17 (0.83-1.09); PROTHROMBIN TIME (PATIENT) 13.5 SEC (9.7-13.0)
[2022-07-07 14:14] LABS: ACTIVATED PTT 33.3 SECONDS (25.2-36.5)
[2022-07-07 14:27] LABS: CALCIUM 8.4 mg/dL (8.5-10.1)
[2022-07-07 14:28] LABS: ALBUMIN 3.1 g/dl (3.4-5.0); BLOOD UREA NITROGEN 10.9 mg/dL (7-18)
[2022-07-07 14:31] LABS: CREATININE 0.7 mg/dL (0.55-1.3)
[2022-07-07] MEDS ORDERED: FUROSEMIDE 40 MG/4 ML INJECTABLE VIAL IVPUSH ONE (14:32)
[2022-07-07] MEDS ORDERED: ASPIRIN 81 MG CHEWABLE TABLETS PO ONE (14:32)
[2022-07-07 14:33] LABS: BILIRUBIN,TOTAL 0.6 mg/dL (0.2-1); TOT PROT 7.7 g/dl (6.4-8.2)
[2022-07-07] MEDS ORDERED: FUROSEMIDE 40 MG/4 ML INJECTABLE VIAL ONE (14:35)
[2022-07-07 14:36] LABS: N-TERMINAL BNP 105.2 pg/ml (5-125)
[2022-07-07] MEDS ORDERED: ASPIRIN 81 MG CHEWABLE TABLETS ONE (14:36)
[2022-07-07] MEDS ORDERED: hydrALAZINE HCL 20 MG/ML VIAL IVPUSH PRN (15:31)
[2022-07-07] MEDS ORDERED: ALBUTEROL SO4 HFA INHALER IH PRN (15:31)
[2022-07-07] MEDS ORDERED: ACETAMINOPHEN 325 MG TABLET (FP) PO PRN (16:04)
[2022-07-07] MEDS ORDERED: CARVEDILOL 12.5 MG TABLET (FP) ONE (16:06)
[2022-07-07] MEDS: CARVEDILOL 6.25 MG TABLET (FP) PO SCH ×2 (16:09→21:46)
[2022-07-07] MEDS ORDERED: traZODone HCL 50 MG TABLET (FP) ONE (21:27)
[2022-07-07] MEDS: HEPARIN NA (PORCINE) 5,000 UNITS/ML 1ML VIAL SQ SCH (21:47)
[2022-07-07] MEDS ORDERED: traZODone HCL 100 MG TABLET (FP) PO SCH (22:00)
[2022-07-07] MEDS ORDERED: FAMOTIDINE 40 MG TABLET PO SCH (22:00)
[2022-07-07] MEDS ORDERED: MELATONIN 5 MG TABLETS PO SCH (22:00)
[2022-07-07] MEDS ORDERED: MONTELUKAST NA 10 MG TABLET PO SCH (22:00)
[2022-07-07] MEDS ORDERED: ATORVASTATIN CA 20 MG TABLET (FP) PO SCH (22:00)
[2022-07-07] MEDS ORDERED: AMITRIPTYLINE HCL 75 MG TABLET PO SCH (22:00)
[2022-07-07] MEDS: BUDESONIDE/FORMETEROL FUMARATE 160/4.5 mcg INHALER IH SCH (22:54)
[2022-07-08] MEDS ORDERED: LEVOTHYROXINE NA 125 MCG TABLET (FP) PO SCH (07:00)
[2022-07-08 07:41] LABS: BASO % 0.5 % (0-2.0); EOS % 2.1 % (0-4.5); HEMATOCRIT 37.6 % (32.4-45.2); HEMOGLOBIN 12.8 GM/dL (10.7-15.3); LYMPH % 34.8 % (8-40); MCH 29.5 pg (25.7-33.7); MEAN CELL VOLUME 86.7 fl (80-96); MEAN PLT VOLUME 8.6 fl (7.5-11.1); MONO % 8.4 % (3.8-10.2); NEUT % 54.2 % (42.8-82.8); PLATELET COUNT 157 10^3/uL (134-434); RBC 4.33 M/mm3 (3.60-5.2); RDW 15.9 % (11.6-15.6); WHITE BLOOD COUNT 6.6 K/mm3 (4.0-10.0)
[2022-07-08 08:15] LABS: CALCIUM 8.8 mg/dL (8.5-10.1)
[2022-07-08 08:16] LABS: BLOOD UREA NITROGEN 14.1 mg/dL (7-18)
[2022-07-08 08:18] LABS: CREATININE 0.7 mg/dL (0.55-1.3)
[2022-07-08] MEDS: HEPARIN NA (PORCINE) 5,000 UNITS/ML 1ML VIAL SQ SCH (09:18)
[2022-07-08] MEDS: CARVEDILOL 6.25 MG TABLET (FP) PO SCH ×3 (09:18→10:56)
[2022-07-08] MEDS: BUDESONIDE/FORMETEROL FUMARATE 160/4.5 mcg INHALER IH SCH (09:24)
[2022-07-08] MEDS ORDERED: LISINOPRIL 20 MG TABLET PO SCH (10:00)
[2022-07-08] MEDS ORDERED: PANTOPRAZOLE 40 MG TABLET PO SCH (10:00)
[2022-07-08] MEDS ORDERED: HYDROCHLOROTHIAZIDE 12.5 MG CAPSULE (FP) PO SCH (10:00)
[2022-07-08] MEDS ORDERED: AMITRIPTYLINE HCL 25 MG TABLET PO SCH (10:00)
[2022-07-08] MEDS ORDERED: metoPROLOL SUCCINATE 25 MG TAB.SR.24H (FP) PO SCH (14:00)
[2022-07-08 14:45] VITALS: BP 122/68; PULSE 68; RESP 20; TEMP 98.4
== END 2022-07-08 17:21 | disposition home or self-care (01) ==
LOC: JER 12:20 → JERBED 14:45 → J4W 20:06
PROVIDERS: ADMIT Internal Medicine; ATTEND Internal Medicine
PROC: 3E033GC Introduction of Other Therapeutic Substance into Peripheral Vein, Percutaneous Approach (ICD-10-PCS; principal; 2022-07-07)
PROC: 3E023GC Introduction of Other Therapeutic Substance into Muscle, Percutaneous Approach (ICD-10-PCS; 2022-07-07)
DX: I16.0 Hypertensive urgency (principal); R07.9 Chest pain, unspecified; R74.01 Elevation of levels of liver transaminase levels
CPT/HCPCS: 0241U-QW; 36415; 71045-TC-FY; 80048; 80053; 83735; 83880; 84484; 85025; 85610; 85730; 86850; 86900; 86901; 93005; 93010; 93970-TC; 96372; 96374; 97116-GP; 97162-GP; 99285-25; G0378; J1644

== ENCOUNTER 2022-09-10 04:25 | Day surgery (SDC) | payer MEDICARE, OTHER ==
[2022-09-08 16:21] VITALS: BMI 30.2
[2022-09-10] MEDS ORDERED: FENTANYL CITRATE/PF 50 MCG/ML VIAL ONE (10:00)
[2022-09-10] MEDS ORDERED: MIDAZOLAM HCL 2 MG/2 ML SINGLE DOSE VIAL ONE (10:00)
[2022-09-10] MEDS ORDERED: SODIUM CHLORIDE 500 ML IV ONE (10:25)
[2022-09-10] MEDS ORDERED: FENTANYL CITRATE/PF 50 MCG/ML VIAL IVPUSH ONE ×2 (10:35→10:42)
[2022-09-10] MEDS ORDERED: ACETAMINOPHEN 1000 MG/100 ML BAG IVPB ONE (10:51)
[2022-09-10] MEDS ORDERED: ACETAMINOPHEN INJECTION 100 ML IVPB ONE (11:37)
[2022-09-10 12:49] VITALS: PULSE 50; RESP 20; TEMP 97.5
[2022-09-10 12:52] VITALS: BP 153/75
== END 2022-09-10 14:40 | disposition home or self-care (01) ==
LOC: JRADIR 04:25
PROVIDERS: ATTEND Internal Medicine Gastroenterology
PROC: 0FB03ZX Excision of Liver, Percutaneous Approach, Diagnostic (ICD-10-PCS; principal; 2022-09-10)
DX: K83.09 Other cholangitis (principal)
CPT/HCPCS: 47000; 76942-TC; 87899; 88307-TC; 88313-TC

== ENCOUNTER 2023-07-04 15:55 | Inpatient (IN) | payer MEDICARE, OTHER ==
[2023-07-04 16:03] VITALS: BMI 26.5
[2023-07-04 17:32] LABS: BASO % 0.8 % (0-2.0); EOS % 2.6 % (0-4.5); HEMATOCRIT 32.9 % (32.4-45.2); HEMOGLOBIN 11.5 GM/dL (10.7-15.3); MEAN PLT VOLUME 8.9 fl (7.5-11.1); MONO % 12.2 % (3.8-10.2); NEUT % 40.4 % (42.8-82.8); PLATELET COUNT 102 10^3/uL (134-434); RBC 3.29 M/mm3 (3.60-5.2); WHITE BLOOD COUNT 3.6 K/mm3 (4.0-10.0)
[2023-07-04 17:36] LABS: INR 1.22 (0.83-1.09); PROTHROMBIN TIME (PATIENT) 14.1 SEC (9.7-13.0)
[2023-07-04 17:39] LABS: ACTIVATED PTT 32.6 SECONDS (25.2-36.5)
[2023-07-04 17:48] LABS: POTASSIUM 3.7 mmol/L (3.5-5.1)
[2023-07-04 17:50] LABS: CALCIUM 8.4 mg/dL (8.5-10.1)
[2023-07-04 17:51] LABS: ALBUMIN 3.3 g/dl (3.4-5.0); BLOOD UREA NITROGEN 14.6 mg/dL (7-18)
[2023-07-04 17:55] LABS: CREATININE 0.9 mg/dL (0.55-1.3)
[2023-07-04 17:56] LABS: BILIRUBIN,TOTAL 0.6 mg/dL (0.2-1); TOT PROT 7.5 g/dl (6.4-8.2)
[2023-07-04 18:00] LABS: N-TERMINAL BNP 118.2 pg/ml (5-125)
[2023-07-04 18:07] LABS: PH,URINE 6.5 (5.0-8.0); URINE APPEARANCE CLEAR; URINE BILIRUBIN NEGATIVE (NEGATIVE); URINE COLOR YELLOW; URINE GLUCOSE (UA) NEGATIVE (NEGATIVE); URINE KETONE NEGATIVE (NEGATIVE); URINE LEUK ESTERASE NEGATIVE (NEGATIVE); URINE NITRITE NEGATIVE (NEGATIVE); URINE PROTEIN NEGATIVE (NEGATIVE)
[2023-07-04] MEDS ORDERED: LOSARTAN POTASSIUM 50 MG TABLET ONE (21:48)
[2023-07-04] MEDS: LOSARTAN POTASSIUM 50 MG TABLET PO ONE (21:51)
[2023-07-04] MEDS ORDERED: ALBUTEROL SO4 HFA INHALER IH PRN (23:33)
[2023-07-05] MEDS: PANTOPRAZOLE 40 MG TABLET PO SCH (06:48)
[2023-07-05] MEDS: LEVOTHYROXINE NA 75 MCG TABLET (FP) PO SCH (06:48)
[2023-07-05 06:50] LABS: BASO % 0.9 % (0-2.0); EOS % 3.6 % (0-4.5); HEMATOCRIT 31.8 % (32.4-45.2); HEMOGLOBIN 11.2 GM/dL (10.7-15.3); LYMPH % 47.4 % (8-40); MCH 35.3 pg (25.7-33.7); MCHC 35.1 g/dl (32.0-36.0); MEAN CELL VOLUME 100.6 fl (80-96); MEAN PLT VOLUME 8.3 fl (7.5-11.1); NEUT % 36.1 % (42.8-82.8); PLATELET COUNT 95 10^3/uL (134-434); RBC 3.16 M/mm3 (3.60-5.2); RDW 15.7 % (11.6-15.6); WHITE BLOOD COUNT 3.3 K/mm3 (4.0-10.0)
[2023-07-05 07:07] LABS: POTASSIUM 3.3 mmol/L (3.5-5.1)
[2023-07-05 07:11] LABS: ALBUMIN 2.9 g/dl (3.4-5.0); BLOOD UREA NITROGEN 12.2 mg/dL (7-18)
[2023-07-05 07:14] LABS: CREATININE 0.7 mg/dL (0.55-1.3); PHOSPHOROUS 3.8 mg/dL (2.5-4.9)
[2023-07-05 07:15] LABS: BILIRUBIN,TOTAL 0.8 mg/dL (0.2-1)
[2023-07-05 08:07] LABS: CALCIUM 7.8 mg/dL (8.5-10.1)
[2023-07-05] MEDS ORDERED: PATIENT'S OWN MEDICATION (NON-FORMULARY) (Linaclotide [Linzess] 72 MCG Capsule) PO SCH (10:00)
[2023-07-05] MEDS ORDERED: PATIENT'S OWN MEDICATION (NON-FORMULARY) (Omeprazole [Omeprazole] 20 MG Tablet.Dr) PO SCH (10:00)
[2023-07-05] MEDS ORDERED: amLODIPine BESYLATE 5 MG TABLET (FP) PO SCH ×2 (11:30)
[2023-07-05] MEDS: ENOXAPARIN NA (PORCINE) 40 MG/0.4 ML DISP.SYRIN SQ SCH (11:41)
[2023-07-05] MEDS: amLODIPine BESYLATE 5 MG TABLET (FP) PO SCH (11:46)
[2023-07-05] MEDS: POTASSIUM CHLORIDE ORAL LIQUID 20 MEQ/15 ML PO ONE (11:46)
[2023-07-05] MEDS: LOSARTAN POTASSIUM 50 MG TABLET PO ONE ×2 (11:47→13:42)
[2023-07-05] MEDS: GABAPENTIN 300 MG CAPSULE PO SCH (11:48)
[2023-07-05] MEDS: azaTHIOprine 50 MG TABLET PO SCH (13:41)
[2023-07-05] MEDS: LOSARTAN POTASSIUM 25 MG TABLET PO SCH (17:59)
[2023-07-05] MEDS: MELATONIN 5 MG TABLETS PO SCH (22:11)
[2023-07-05] MEDS: MONTELUKAST NA 10 MG TABLET PO SCH (22:12)
[2023-07-05] MEDS: FAMOTIDINE 20 MG TABLET PO SCH (22:12)
[2023-07-06 07:20] LABS: HEMOGLOBIN 12.3 GM/dL (10.7-15.3); MCH 35.1 pg (25.7-33.7); MCHC 35.3 g/dl (32.0-36.0); MEAN CELL VOLUME 99.7 fl (80-96); MEAN PLT VOLUME 8.5 fl (7.5-11.1); PLATELET COUNT 104 10^3/uL (134-434); RBC 3.51 M/mm3 (3.60-5.2); RDW 16.2 % (11.6-15.6); WHITE BLOOD COUNT 3.3 K/mm3 (4.0-10.0)
[2023-07-06 07:29] LABS: POTASSIUM 3.8 mmol/L (3.5-5.1)
[2023-07-06 07:31] LABS: ALBUMIN 3.2 g/dl (3.4-5.0); CALCIUM 8.2 mg/dL (8.5-10.1)
[2023-07-06 07:32] LABS: BLOOD UREA NITROGEN 11.7 mg/dL (7-18); MAGNESIUM 1.9 mg/dL (1.8-2.4)
[2023-07-06 07:35] LABS: CREATININE 0.8 mg/dL (0.55-1.3); PHOSPHOROUS 3.9 mg/dL (2.5-4.9)
[2023-07-06 07:36] LABS: BILIRUBIN,TOTAL 0.8 mg/dL (0.2-1); TOT PROT 7.4 g/dl (6.4-8.2)
[2023-07-06] MEDS ORDERED: ALBUTEROL SULFATE 0.021% (0.63 MG/3 ML) VIAL.NEB NEB ONE (10:00)
[2023-07-06] MEDS ORDERED: ALBUTEROL SO4 0.083% IH SOL 2.5 MG/3 ML VIAL.NEB. NEB ONE (10:15)
[2023-07-06] MEDS: LOSARTAN POTASSIUM 50 MG TABLET PO SCH (10:28)
[2023-07-06 14:19] VITALS: BP 153/79; PULSE 68; RESP 18; TEMP 97.8
[2023-07-06] MEDS ORDERED: ROSUVASTATIN CA 5 MG TABLET PO SCH (22:00)
== END 2023-07-06 15:55 | disposition home or self-care (01) | DRG 305 ==
LOC: JER 15:55 → JERBED 20:12 → OBSVTOIN 21:26 → J4S 07-05 02:53
PROVIDERS: ADMIT Internal Medicine; ATTEND Internal Medicine
DX: I16.0 Hypertensive urgency (principal); I50.32 Chronic diastolic (congestive) heart failure; E78.5 Hyperlipidemia, unspecified; J45.909 Unspecified asthma, uncomplicated; K21.9 Gastro-esophageal reflux disease without esophagitis; E03.9 Hypothyroidism, unspecified; J43.9 Emphysema, unspecified; Z86.16 Personal history of COVID-19; F32.9 Major depressive disorder, single episode, unspecified; I11.0 Hypertensive heart disease with heart failure; K74.3 Primary biliary cirrhosis
CPT/HCPCS: 36415; 71045-TC-FY; 80053; 80061; 81003; 82550; 82553; 83036; 83735; 83880; 84100; 84439; 84443; 84484; 85025; 85027; 85610; 85730; 87086; 93005; 93010; 99285-25; G0378